=== PATIENT | female | born 1970 | race Caucasian/White ===

== ENCOUNTER 2019-02-11 11:42 | Emergency (ER) | payer OTHER, MEDICAID ==
[~2019-02-11] VITALS: Ht 167.6 cm; Wt 74.4 kg
[~2019-02-11 11:42] MED LIST: ABILIFY; ALIGN4 MG PO; ALPRAZOLAM 0.0.25 MG; ANTI DEPRESSANT; BACTRIM DS TAB1 EACH PO; CLOTRIMAZOLE 1%15 G1 TOP; DIFLUCAN150 M1 PO; DOXEPIN 25 MG C25 M1 PO; DOXYCYCLINE 10100 MG PO; EFFEXOR 5050 MG/1 T1 PO; EFFEXOR XR150 MG PO; EFFEXOR XR75 MG PO; HEARTBURN RELIE75 M1 PO; METFORMIN HCL500 MG PO; NICOTINE TRANSD21 M1 TRANSDERM; NORCO 5-325 TA1 EACH PO; OMEPRAZOLE40 MG; PHENERGAN 25 MG25 M1 PO; PRISTIQ50 MG; PROZAC40 MG PO; SEROQUEL 50 MG50 MG PO; SEROQUEL200 MG PO; TORADOL 10 MG T10 MG PO; ULTRAM 50MG TAB50 MG PO; VENLAFAXIN75 MG/1 T2 PO; ZOFRAN 4 MG ORAL4 M1 DIS; ZYPREXA 5 MG TAB5 M1 PO
[2019-02-11 12:17] LABS: ABSOLUTE BASOPHILS 0.1 thou/uL (0.0-0.2); ABSOLUTE EOSINOPHILS 0.2 thou/uL (0.0-0.7); ABSOLUTE LYMPHOCYTES 4.3 thou/uL (0.8-5.3); ABSOLUTE MONOCYTES 0.5 thou/uL (0.0-1.2); ABSOLUTE NEUTROPHILS 6.8 thou/uL (1.6-8.1); EOSINOPHILS 1.8 %; HEMATOCRIT 38.6 % (37.0-47.0); HEMOGLOBIN 13.1 gm/dL (12.0-15.0); LYMPHOCYTES 35.8 %; MCH 28.9 pg (26.0-34.0); MCHC 33.9 g/dL (28.0-37.0); MCV 85.2 fL (80.0-100.0); MONOCYTES 4.4 %; MPV 7.4 fl. (7.2-11.1); NUCLEATED RBCS 0 /100WBC; PLATELET COUNT* 372 thou/uL (150-400); RBC 4.53 mil/uL (4.20-5.00); RDW-CV 14.2 % (10.5-14.5); WBC 11.9 thou/uL (4.0-11.0)
[2019-02-11 12:24] LABS: CALCIUM 9.2 mg/dL (8.5-10.1); CREATININE 0.9 mg/dL (0.6-1.3); POTASSIUM 4.1 mmol/L (3.5-5.1)
[2019-02-11] MEDS ORDERED: KEFLEX500 M1 PO (13:34)
[2019-02-11] MEDS ORDERED: HYDROCODONE-AP1 EAC6 PO (13:34)
[2019-02-11] MEDS ORDERED: BACTRIM DS TAB1 EACH PO (13:34)
[2019-02-11 13:44] VITALS: BP 121/80
== END 2019-02-11 13:45 | disposition home or self-care (01) ==
LOC: M.ERS 11:42
PROVIDERS: Emergency Medicine Emergency Medical Services
DX: L03.211 Cellulitis of face (principal); F31.9 Bipolar disorder, unspecified; Z90.49 Acquired absence of other specified parts of digestive tract; Z98.890 Other specified postprocedural states

== ENCOUNTER 2019-09-18 18:56 | Emergency (ER) | payer OTHER ==
[~2019-09-18] VITALS: Ht 167.6 cm; Wt 72.6 kg
[~2019-09-18 18:56] MED LIST changes: +HYDROCODONE-AP1 EAC6 PO; +KEFLEX500 M1 PO
[2019-09-18] MEDS ORDERED: NAPROSYN500 MG PO (20:13)
[2019-09-18] MEDS ORDERED: BACTRIM DS TAB1 EAC1 PO (20:13)
[2019-09-18 20:30] VITALS: BP 143/89
== END 2019-09-18 20:30 | disposition home or self-care (01) ==
LOC: M.ERS 18:56
DX: N61.1 Abscess of the breast and nipple (principal); F31.9 Bipolar disorder, unspecified; Z90.49 Acquired absence of other specified parts of digestive tract; Z98.890 Other specified postprocedural states